=== PATIENT | male | born 1960 | race Hispanic/Latino ===

== ENCOUNTER 2020-05-03 05:41 | Observation (INO) | payer MEDICAID, OTHER ==
[~2020-05-03] VITALS: Ht 154.9 cm; Wt 78.9 kg
[2020-05-03] MEDS ORDERED: CEFTRIAXONE SODIUM 2 GM VIAL ONE (06:38)
[2020-05-03 06:43] LABS: ABG BASE EXCESS -3.8 mmol/L (-2.0-3.0); ABG HCO3 20.9 mmol/L (21.0-28.0); ABG OXYGEN SATURATION 94.3 % (95.0-99.0); ABG PCO2 37 mmHg (35-48)
[2020-05-03 07:19] LABS: BASOPHILS % (AUTO) 0.4 % (0.0-5.0); EOSINOPHILS % (AUTO) 0.1 % (0.0-8.0); LYMPHOCYTES % (AUTO) 10.4 % (21.0-51.0); MEAN CORPUSCULAR HEMOGLOBIN 32.3 pg (27.0-33.0); MEAN CORPUSCULAR HGB CONC 35.8 g/dL (32.0-36.0); MEAN CORPUSCULAR VOLUME 90.2 fL (79-99); MONOCYTES % (AUTO) 8.2 % (3.0-13.0); NEUTROPHILS % (AUTO) 80.2 % (40.0-77.0); PLATELET COUNT (AUTO) 255 K/uL (130-400); RED BLOOD CELL COUNT(AUTO) 3.99 MIL/uL (4.50-6.20); RED CELL DISTRIBUTION WIDTH 12.8 % (11.0-15.5); WHITE BLOOD COUNT (AUTO) 7.6 K/uL (4.8-10.8)
[2020-05-03] MEDS ORDERED: AZITHROMYCIN 250 MG TABLET PO ONE (07:28)
[2020-05-03 07:32] LABS: INR 0.99 (0.85-1.15); PARTIAL THROMBOPLASTIN TIME 26.4 SEC (26.3-35.5); PROTHROMBIN TIME 10.7 SEC (9.6-11.6)
[2020-05-03 07:40] LABS: APPEARANCE,URINE Clear (CLEAR); BILIRUBIN,URINE Negative (NEGATIVE); COLOR,URINE Yellow (YELLOW); GLUCOSE, URINE (UA) >=1000 mg/dL (NEGATIVE); KETONES,URINE Trace mg/dL (NEGATIVE); LEUKOCYTE ESTERASE ,URINE Negative (NEGATIVE); NITRATE,URINE Negative (NEGATIVE); OCCULT BLOOD,URINE Negative (NEGATIVE); PROTEIN,URINE Negative (NEGATIVE); UROBILINOGEN,URINE 0.2 mg/dL (0.2-1.0)
[2020-05-03 07:41] LABS: ALBUMIN 3.8 g/dL (3.5-5.0); BILIRUBIN,TOTAL 0.4 mg/dL (0.2-1.0); CREATININE 0.8 mg/dL (0.5-1.5); POTASSIUM 4.5 mmol/L (3.5-5.1); TOTAL PROTEIN, SERUM 6.7 g/dL (6.0-8.3)
[2020-05-03] MEDS ORDERED: ONDANSETRON HCL 4 MG/2 ML VIAL ONE (07:45)
[2020-05-03 07:46] LABS: AMPHET/METH SCREEN,URINE NEGATIVE (NEGATIVE); BARBITURATE SCREEN, URINE NEGATIVE (NEGATIVE); BENZODIAZEPINES SCREEN,URINE NEGATIVE (NEGATIVE); CANNABINOID SCREEN,URINE POSITIVE (NEGATIVE); COCAINE SCREEN,URINE POSITIVE (NEGATIVE); OPIATE SCREEN,URINE NEGATIVE (NEGATIVE); PHENCYCLIDINE SCREEN,URINE NEGATIVE (NEGATIVE)
[2020-05-03 08:06] LABS: BACTERIA,URINE None Seen /HPF (None Seen); RBC,URINE None Seen /HPF (0-1); SQUAMOUS EPITHELIAL CELL,UR 0-2 /HPF (0-2); WBC,URINE None Seen /HPF (0-1)
[2020-05-03 08:43] LABS: B-TYPE NATRIURETIC PEPTIDE 18 pg/mL (0-100)
[2020-05-03 08:50] LABS: ALCOHOL, BLOOD 60 mg/dL (0-10)
[2020-05-03] MEDS ORDERED: CHLORDIAZEPOXIDE HCL 25 MG CAP PO PRN (09:45)
[2020-05-03] MEDS ORDERED: PHARMACY COMMUNICATION MISC PRN (09:45)
[2020-05-03] MEDS ORDERED: CEFTRIAXONE SODIUM 1 GM IVP SCH (09:45)
[2020-05-03] MEDS ORDERED: INSULIN GLARGINE 100 UNITS/ML 10 ML VIAL SQ SCH (09:45)
[2020-05-03] MEDS ORDERED: THIAMINE HCL 100 MG TABLET PO SCH ×2 (09:45→10:15)
[2020-05-03] MEDS ORDERED: LORAZEPAM 2 MG/ML 1 ML VIAL IVP PRN (09:45)
[2020-05-03] MEDS ORDERED: ACETAMINOPHEN-CODEINE 300/30MG TAB PO PRN (09:45)
[2020-05-03] MEDS ORDERED: FOLIC ACID 1 MG TABLET PO SCH ×2 (09:45→10:15)
[2020-05-03] MEDS ORDERED: LISINOPRIL 10 MG TABLET PO SCH ×2 (09:45→10:15)
[2020-05-03] MEDS ORDERED: LISINOPRIL 5 MG TABLET ONE (10:23)
[2020-05-03] MEDS ORDERED: THIAMINE HCL 100 MG TABLET ONE (10:23)
[2020-05-03] MEDS ORDERED: FOLIC ACID 1 MG TABLET ONE (10:24)
[2020-05-03] MEDS ORDERED: M.V.I. IV [ADULT] 10 ML, FOLIC ACID 1 MG, THIAMINE HCL 100 MG in SODIUM CHLORIDE 0.9% 1... IV SCH (10:30)
[2020-05-03] MEDS ORDERED: INSULIN HUMULIN R 100 UNIT/ML 3ML SQ SCH (11:30)
[2020-05-03] MEDS ORDERED: CHLORDIAZEPOXIDE HCL 25 MG CAP ONE (11:44)
[2020-05-03] MEDS ORDERED: INSULIN HUMULIN R 100 UNIT/ML 3ML ONE ×2 (13:02→22:36)
[2020-05-03 13:38] LABS: MAGNESIUM 1.7 mg/dL (1.80-2.40)
[2020-05-03] MEDS ORDERED: MAGNESIUM 2GM PREMIX 50ML 50 ML IV SCH (14:45)
[2020-05-03] MEDS ORDERED: CEFTRIAXONE SODIUM 1 GM ONE ×2 (17:34→22:26)
[2020-05-03] MEDS ORDERED: MAGNESIUM 2GM PREMIX 50ML 50 ML IV ONE (17:34)
[2020-05-03] MEDS ORDERED: ATENOLOL 50 MG TABLET PO SCH (21:00)
[2020-05-03] MEDS ORDERED: ACETAMINOPHEN-CODEINE 300/30MG TAB ONE (22:54)
[2020-05-04] MEDS ORDERED: CHLORDIAZEPOXIDE HCL 25 MG CAP ONE (03:25)
[2020-05-04] MEDS ORDERED: CEFTRIAXONE SODIUM 1 GM ONE ×2 (05:24→18:49)
[2020-05-04 06:05] LABS: BASOPHILS % (AUTO) 0.6 % (0.0-5.0); EOSINOPHILS % (AUTO) 0.8 % (0.0-8.0); HEMATOCRIT 33.1 % (42-54); LYMPHOCYTES % (AUTO) 15.9 % (21.0-51.0); MEAN CORPUSCULAR HEMOGLOBIN 32.1 pg (27.0-33.0); MEAN CORPUSCULAR HGB CONC 34.1 g/dL (32.0-36.0); MONOCYTES % (AUTO) 12.5 % (3.0-13.0); NEUTROPHILS % (AUTO) 69.6 % (40.0-77.0); PLATELET COUNT (AUTO) 173 K/uL (130-400); RED BLOOD CELL COUNT(AUTO) 3.52 MIL/uL (4.50-6.20); RED CELL DISTRIBUTION WIDTH 13.4 % (11.0-15.5); WHITE BLOOD COUNT (AUTO) 4.7 K/uL (4.8-10.8)
[2020-05-04 06:23] LABS: CARBON DIOXIDE 25 mmol/L (21-32); CHLORIDE 103 mmol/L (101-111); CREATININE 0.8 mg/dL (0.5-1.5); GLOMERULAR FILTR. RATE CALC 104 mL/min (>60); GLUCOSE,RANDOM 139 mg/dL (70-105); SODIUM SERUM 138 mmol/L (136-145); UREA NITROGEN, BLOOD 6 mg/dL (7-18)
[2020-05-04] MEDS ORDERED: INSULIN HUMULIN R 100 UNIT/ML 3ML ONE ×2 (06:30→12:25)
[2020-05-04 07:13] LABS: HEMOGLOBIN A1C 10.8 % (4.0-6.0)
[2020-05-04] MEDS ORDERED: LISINOPRIL 5 MG TABLET ONE (08:17)
[2020-05-04] MEDS ORDERED: VITAMIN B COMPLEX 1 CAPSULE ONE (08:17)
[2020-05-04] MEDS ORDERED: FOLIC ACID 1 MG TABLET ONE (08:17)
[2020-05-04] MEDS ORDERED: ACETAMINOPHEN-CODEINE 300/30MG TAB ONE ×2 (08:18→13:23)
[2020-05-04] MEDS ORDERED: INSULIN GLARGINE 100 UNITS/ML 10 ML VIAL SQ SCH (09:00)
--- NOTE | 2020-05-04 19:49 | NUR ---
E RX for pt reads "LANTUS 12 UNITS ONCE x 7 DAYS". Called [employer] Jeane Cobb to clarify, she stated she had spoken to pt and discovered that he actually takes 20 units daily at home; rec'd instructions to cancel E-rx orders and write out new rx for Lantus 20 units sq daily as well as lisinopril 10 mg po daily. Telephone order written out. Discharge summary completed and endorsed to primary nurse in ER who will provide discharge instructions to pt.
== END 2020-05-04 20:03 | disposition home or self-care (01) ==
LOC: EDH 05:41 → EDHIP 05:42
PROVIDERS: ADMIT Internal Medicine; ATTEND Internal Medicine
DX: I16.0 Hypertensive urgency (principal); Z20.828 Contact with and (suspected) exposure to other viral communicable diseases; E11.65 Type 2 diabetes mellitus with hyperglycemia; E86.1 Hypovolemia; E86.0 Dehydration; E87.2 Acidosis; R00.0 Tachycardia, unspecified; E78.5 Hyperlipidemia, unspecified; I10 Essential (primary) hypertension; E78.00 Pure hypercholesterolemia, unspecified; F32.9 Major depressive disorder, single episode, unspecified; F10.129 Alcohol abuse with intoxication, unspecified; F14.10 Cocaine abuse, uncomplicated; F19.10 Other psychoactive substance abuse, uncomplicated; Z79.4 Long term (current) use of insulin; Z79.899 Other long term (current) drug therapy
CPT/HCPCS: 36415 ×2; 36600; 70450; 71045; 80048; 80053; 80305; 81001; 82010; 82550; 82803; 82948 ×4; 83036; 83605 ×3; 83690; 83735 ×2; 83880; 84145 ×2; 84484; 85025 ×2; 85610; 85730; 86900; 86901; 87040 ×2; 87088; 87426; 87804 ×2; 93005; 99285; G0378 ×34; J0696 ×5; J1815 ×4; J2405; J3411 ×2; J3475; J3490 ×2; J7030 ×2; U0003

== ENCOUNTER 2022-04-19 11:15 | Emergency (ER) | payer MEDICAID ==
[~2022-04-19] VITALS: Ht 154.9 cm; Wt 77.1 kg
[2022-04-19 13:29] VITALS: BP 122/74
[2022-04-19] MEDS ORDERED: KETOROLAC 30MG VIAL (30MG/ML) IM ONE (13:30)
[2022-04-19 13:33] LABS: BASOPHILS % (AUTO) 0.5 % (0.0-5.0); EOSINOPHILS % (AUTO) 0.6 % (0.0-8.0); HEMATOCRIT 39.3 % (42-54); LYMPHOCYTES % (AUTO) 10.4 % (21.0-51.0); MEAN CORPUSCULAR HEMOGLOBIN 31.3 pg (27.0-33.0); MEAN CORPUSCULAR HGB CONC 35.6 g/dL (32.0-36.0); MEAN CORPUSCULAR VOLUME 87.7 fL (79-99); MONOCYTES % (AUTO) 9.5 % (3.0-13.0); NEUTROPHILS % (AUTO) 78.4 % (40.0-77.0); PLATELET COUNT (AUTO) 203 K/uL (130-400); RED BLOOD CELL COUNT(AUTO) 4.48 MIL/uL (4.50-6.20); RED CELL DISTRIBUTION WIDTH 11.8 % (11.0-15.5); WHITE BLOOD COUNT (AUTO) 11.1 K/uL (4.8-10.8)
[2022-04-19 14:02] LABS: APPEARANCE,URINE CLEAR (CLEAR); BILIRUBIN,URINE NEGATIVE (NEGATIVE); COLOR,URINE YELLOW (YELLOW); GLUCOSE, URINE (UA) >=1000 mg/dL (NEGATIVE); KETONES,URINE NEGATIVE (NEGATIVE); LEUKOCYTE ESTERASE ,URINE NEGATIVE Leu/uL (NEGATIVE); NITRATE,URINE NEGATIVE (NEGATIVE); OCCULT BLOOD,URINE NEGATIVE (NEGATIVE); PROTEIN,URINE 10 mg/dL (NEGATIVE); UROBILINOGEN,URINE 0.2 mg/dL (0.2-1.0)
[2022-04-19 14:13] LABS: MUCUS,URINE RARE LPF (None Seen); RBC,URINE 0-1 /HPF (0-1); WBC,URINE 0-1 /HPF (0-1)
[2022-04-19] MEDS ORDERED: SOLU-MEDROL 125MG VIAL IM SCH (15:00)
[2022-04-19] MEDS ORDERED: ACET-66 PO (15:05)
[2022-04-19] MEDS ORDERED: PRED20TA3 PO (15:05)
[2022-04-19] MEDS ORDERED: SOLU-MEDROL 125MG VIAL ONE (15:12)
[2022-04-19 15:53] LABS: ALBUMIN 3.5 g/dL (3.5-5.0); CREATININE 1.2 mg/dL (0.5-1.5); POTASSIUM 3.8 mmol/L (3.5-5.1); TOTAL PROTEIN, SERUM 7.7 g/dL (6.0-8.3)
== END 2022-04-19 15:27 | disposition home or self-care (01) ==
LOC: EDH 11:15
DX: M87.841 Other osteonecrosis, right hand (principal); M25.531 Pain in right wrist; I10 Essential (primary) hypertension; E11.9 Type 2 diabetes mellitus without complications; E78.00 Pure hypercholesterolemia, unspecified; Z96.652 Presence of left artificial knee joint; Z98.890 Other specified postprocedural states
CPT/HCPCS: 99284; 84550; 80053; 85025; 83605; 81001; 36415; 73110; 29125; 96372; J2930; J1885